=== PATIENT | male | born 1985 | race Caucasian/White ===

== ENCOUNTER 2017-11-29 21:34 | Emergency (ER) | payer OTHER ==
[~2017-11-29] VITALS: Ht 177.8 cm; Wt 77.1 kg
[~2017-11-29 21:34] MED LIST: HYDROCODON-ACE1 EAC7 PO; NOHOMEMEDICATIONS
[2017-11-29] MEDS ORDERED: NORCO 5-325 TA1 EACH PO (22:38)
[2017-11-29] MEDS ORDERED: IBUPROFEN 800800 MG PO (22:38)
[2017-11-29 23:05] VITALS: BP 112/61
== END 2017-11-29 23:06 | disposition home or self-care (01) ==
LOC: M.ERS 21:34
DX: T22.20XA Burn of second degree of shoulder and upper limb, except wrist and hand, unspecified site, initial encounter (principal); T31.0 Burns involving less than 10% of body surface; X08.8XXA Exposure to other specified smoke, fire and flames, initial encounter; Y93.89 Activity, other specified; Y92.89 Other specified places as the place of occurrence of the external cause; Y99.8 Other external cause status